=== PATIENT | female | born 1960 | race Two or more races ===

== ENCOUNTER 2016-12-08 16:13 | Emergency (ER) | payer OTHER ==
[~2016-12-08] VITALS: Ht 170.2 cm; Wt 72.9 kg
[~2016-12-08 16:13] MED LIST: ACIPHEX20 MG PO; KEFLEX500 MG PO; MIRALAX17 GM PO; RANITIDINE HCL300 M1 PO; VOLTAREN75 MG PO
[2016-12-08 16:18] VITALS: BP 159/93
[2016-12-08] MEDS ORDERED: MOTRIN600 MG PO (17:57)
[2016-12-08] MEDS ORDERED: PREDNISONE20 MG PO (17:57)
[2016-12-08] MEDS ORDERED: FLEXERIL5 MG PO (17:57)
== END 2016-12-08 18:33 | disposition home or self-care (01) ==
LOC: EME 16:13
DX: S33.5XXA Sprain of ligaments of lumbar spine, initial encounter (principal); S23.3XXA Sprain of ligaments of thoracic spine, initial encounter; V49.40XA Driver injured in collision with unspecified motor vehicles in traffic accident, initial encounter
CPT/HCPCS: 72070; 72100; 99281; 99283; J1885; J7512

== ENCOUNTER 2017-07-27 03:28 | Emergency (ER) | payer BC ==
[~2017-07-27] VITALS: Ht 170.2 cm; Wt 69.2 kg
[~2017-07-27 03:28] MED LIST changes: +FLEXERIL5 MG PO; +MOTRIN600 MG PO; +PREDNISONE20 MG PO
[2017-07-27 03:58] LABS: HEMATOCRIT 36.1 % (36.0-46.0); MCH 28.7 PG (29.0-34.0); MCHC 32.7 G/DL (30.0-36.0); MCV 87.8 FL (83-99); MEAN PLAT.VOLUME 10.6 uM^3 (9.5-12.4); PLATELET COUNT 179 K/uL (156-360); RBC DIS.WIDTH-CV 12.8 % (11.8-14.6); RBC DIS.WIDTH-SD 41.4 % (39-53); RED BLOOD COUNT 4.11 M/uL (3.80-5.20)
[2017-07-27 04:10] LABS: CHLORIDE 105 mEq/L (99-109); SODIUM 140 mEq/L (136-147)
[2017-07-27 04:11] LABS: GLUCOSE 91 mg/dL (70-99)
[2017-07-27 04:13] LABS: ANION GAP 10 MEQ/L (2-14)
[2017-07-27 04:15] LABS: GFR ESTIMATE (CALCULATED) > 59 mL/min/
[2017-07-27 04:16] LABS: UREA NITROGEN (BUN) 12 mg/dL (9-23)
[2017-07-27 04:18] LABS: CREATINE KINASE 283 IU/L (1-294); TOTAL CK 283 IU/L (1-294)
[2017-07-27 04:24] LABS: CK-MB 4.5 ng/mL (0.0-4.9); D-DIMER ELISA < 150.00 ng/mLDDU (<230)
[2017-07-27 04:25] LABS: TROP-I INTERPRETATION NEGATIVE; TROPONIN-I < 0.01 ng/mL (0.0-0.30)
[2017-07-27] MEDS ORDERED: MEDROL DOSEPAK4 MG PO (04:30)
[2017-07-27] MEDS ORDERED: NAPROSYN500 MG PO (04:30)
[2017-07-27 05:30] VITALS: BP 126/75
== END 2017-07-27 05:49 | disposition home or self-care (01) ==
LOC: EME 03:28
PROVIDERS: Emergency Medicine
DX: M54.6 Pain in thoracic spine (principal); K21.9 Gastro-esophageal reflux disease without esophagitis
CPT/HCPCS: 71010; 80048; 82550; 82553; 84484; 85027; 85379; 99281; 99284; J1100; J1885